=== PATIENT | male | born 1995 | race American Indian/Alaskan Native ===

== ENCOUNTER 2019-02-03 20:15 | Emergency (ER) | payer SELFPAY ==
[2019-02-03 20:20] VITALS: BP 153/78
--- NOTE | 2019-02-03 20:34 | Emergency Department Report ---
Blank Doc - Documentation Documentation: This is a 23-year-old male that presents with left great toe pain and swelling. Stated believes hit it. This initial assessment/diagnostic orders/clinical plan/treatment(s) is/are subject to change based on patient's health status, clinical progression and re- assessment by fellow clinical providers in the ED. Further treatment and workup at subsequent clinical providers discretion. Patient/guardians urged not to elope from the ED as their condition may be serious if not clinically assessed and managed. Initial orders include: 1- Patient sent to [facility] for further evaluation and treatment 2- xray
[2019-02-03] MEDS ORDERED: HYDROGEN PEROXIDE ONE (21:32)
--- NOTE | 2019-02-03 21:41 | XRay Report ---
LEFT FOOT 3 VIEWS INDICATION / CLINICAL INFORMATION: pain. COMPARISON: None available. FINDINGS: No significant abnormality. Signer Name: Ramiro Michelle MD Signed: 02/03/2019 9:37 PM Workstation Name: [id number]
[2019-02-03] MEDS ORDERED: PERCOCET 5/325 PO STA (22:20)
--- NOTE | 2019-02-03 22:25 | Emergency Department Report ---
ED General Adult HPI - General Chief complaint: Extremity Injury, Lower Stated complaint: RT TOE INJURY Time Seen by Provider: 02/03/19 20:34 Source: patient Mode of arrival: Ambulatory Limitations: No Limitations - History of Present Illness Initial comments: 23-year-old morbidly obese -[place] male complaining of pain to his left great toe which started from an unknown etiology. States that he may have bumped his toe, but does not show reports progressively worsening dull throbbing pain and some and some swelling as well. Location: lower extremity Radiation: non-radiation Quality: dull Consistency: constant Improves with: none Worsens with: none - Related Data Previous Rx's Medication Instructions Recorded Last Taken Type Amoxicillin/Potassium Clav 1 each PO BID #20 tablet 02/03/19 Unknown Rx [Augmentin 875-125 Tablet] Chlorhexidine Gluconate [Hibiclens] 10 ml TP BID #240 liquid 02/03/19 Unknown Rx Allergies Allergy/AdvReac Type Severity Reaction Status Date / Time No Known Allergies Allergy Verified 02/03/19 20:18 ED Review of Systems ROS: Stated complaint: RT TOE INJURY Other details as noted in HPI Comment: All other systems reviewed and negative ED Past Medical Hx - Past Medical History Previous Medical History?: No - Surgical History Past Surgical History?: No - Social History Smoking Status: Never Smoker - Medications Home Medications: Home Medications Medication Instructions Recorded Confirmed Last Taken Type Amoxicillin/Potassium Clav 1 each PO BID #20 tablet 02/03/19 Unknown Rx [Augmentin 875-125 Tablet] Chlorhexidine Gluconate [Hibiclens] 10 ml TP BID #240 liquid 02/03/19 Unknown Rx ED Physical Exam - General Limitations: No Limitations General appearance: alert, in no apparent distress - Head Head exam: Present: atraumatic, normocephalic - Eye Eye exam: Present: normal appearance - ENT ENT exam: Present: mucous membranes moist - Neck Neck exam: Present: normal inspection - Respiratory Respiratory exam: Present: normal lung sounds bilaterally. Absent: respiratory distress - Cardiovascular Cardiovascular Exam: Present: regular rate, normal rhythm. Absent: systolic murmur, diastolic murmur, rubs, gallop - GI/Abdominal GI/Abdominal exam: Present: soft, normal bowel sounds - Rectal Rectal exam: Present: deferred - Extremities Exam Extremities exam: Present: normal inspection - Expanded Lower Extremity Exam Left Foot/Toe exam: Present: tenderness, swelling (: Tender left hallux with a paronychia present. No lymphangitis noted.), erythema - Back Exam Back exam: Present: normal inspection - Neurological Exam Neurological exam: Present: alert, oriented X3 - Psychiatric Psychiatric exam: Present: normal affect, normal mood - Skin Skin exam: Present: warm, dry, intact, normal color. Absent: rash ED Course Vital Signs 02/03/19 20:19 Temperature 98.0 F Pulse Rate 89 Respiratory 18 Rate Blood Pressure 153/78 O2 Sat by Pulse 96 Oximetry - Procedure Description Procedures done: 23-year-old male or paronychia to the left hallux. The wound was prepped and draped in aseptic fashion. #11 blade was used to incise the paronychia copious amounts of pus was evacuated. Wound was then was irrigated with saline and peroxide mix and then dressed with antimicrobials dressing. She will centimeter well is negative. Blood loss less than 2 mL ED Medical Decision Making - Medical Decision Making Paronychia to the left hallux treated with incision and drainage complications. Procedure was said with simple Critical care attestation.: If time is entered above; I have spent that time in minutes in the direct care of this critically ill patient, excluding procedure time. ED Disposition Clinical Impression: Paronychia Disposition: DC-01 TO HOME OR SELFCARE Is pt being admited?: No Does the pt Need Aspirin: No Condition: Stable Instructions: Paronychia (ED) Prescriptions: Colchicine 0.6 mg PO Q1HR #10 capsule predniSONE [Deltasone] 50 mg PO QDAY #5 tab traMADol [Ultram] 50 mg PO Q6HR PRN #10 tablet PRN Reason: Pain Referrals: GEORGE BARRIENTOS MD [Primary Care Provider] - 3-5 Days
[2019-02-03] MEDS ORDERED: AUGMENTIN 875 MG PO ONE (22:26)
== END 2019-02-03 22:36 | disposition home or self-care (01) ==
LOC: ED 20:15
DX: L03.032 Cellulitis of left toe (principal)

== ENCOUNTER 2019-02-26 01:03 | Emergency (ER) | payer SELFPAY ==
[2019-02-26 02:13] LABS: BUN/Creatinine Ratio 12; Blood Urea Nitrogen 13 mg/dL (9-20); Calcium 9.3 mg/dL (8.4-10.2); Hemolysis Index 4
[2019-02-26] MEDS ORDERED: XYLOCAINE 2%/ EPI 1:200,000 INFILTRATI ONE (02:51)
[2019-02-26] MEDS ORDERED: ATIVAN IM PRN (02:51)
[2019-02-26] MEDS ORDERED: TYLENOL PO PRN (02:51)
[2019-02-26] MEDS ORDERED: HALDOL IM PRN (02:51)
[2019-02-26] MEDS ORDERED: BOOSTRIX IM ONE (02:51)
[2019-02-26] MEDS ORDERED: NACL 0.9% IR ONE (02:51)
--- NOTE | 2019-02-26 02:53 | Emergency Department Report ---
<ALMA PASTRANA - Last Filed: 02/26/19 04:05> ED General Adult HPI - General Chief complaint: Psych Stated complaint: SUICIDAL ATTEMPT Time Seen by Provider: 02/26/19 02:20 - Related Data Previous Rx's Medication Instructions Recorded Last Taken Type Amoxicillin/Potassium Clav 1 each PO BID #20 tablet 02/03/19 Unknown Rx [Augmentin 875-125 Tablet] Chlorhexidine Gluconate [Hibiclens] 10 ml TP BID #240 liquid 02/03/19 Unknown Rx Allergies Allergy/AdvReac Type Severity Reaction Status Date / Time No Known Allergies Allergy Verified 02/03/19 20:18 ED Past Medical Hx - Medications Home Medications: Home Medications Medication Instructions Recorded Confirmed Last Taken Type Amoxicillin/Potassium Clav 1 each PO BID #20 tablet 02/03/19 02/26/19 Unknown Rx [Augmentin 875-125 Tablet] Chlorhexidine Gluconate [Hibiclens] 10 ml TP BID #240 liquid 02/03/19 02/26/19 Unknown Rx - Laceration /Wound Repair Left Anterior Arm Wound Location: upper extremity Wound Length (cm): 4 (x 3 ) Wound's Depth, Shape: superficial Wound Explored: clean Irrigated w/ Saline (ccs): 250 Betadine Prep?: Yes Anesthesia: 1% Lidocaine Volume Anesthetic (ccs): 6 Wound Debrided: none - no foreignbody noted Wound Repaired With: sutures Suture Size/Type: 4:0, proline Number of Sutures: 37 Layer Closure?: No Sterile Dressing Applied?: Yes Progress: Left forearm with 4, 4 cm lacerations superficial no nerve tendon or muscle damage range of motion is intact flexion and extension to direct confrontation intact distal pulses intact no bleeding wounds clean with Betadine solution and anesthesia with 1% lidocaine 6 mL total was irrigated with 250 mL of sterile saline wounds manually probe explored no foreign bodies wounds closed with 4. 0 Prolene 37 sutures all bleeding is controlled range of motion remains intact CMTS intact distal pulses remain intact sterile dressing applied, Extremity x-rays noted no fracture patient and mother given wound care instructions . Patient for tetanus antibiotics will follow with PCP in 2-3 days for wound check and 7-10 days for suture removal always controlled patient tolerated procedure with minimal distress. ED Medical Decision Making - Lab Data Result diagrams: 02/26/19 01:23 02/26/19 01:23 ED Disposition Clinical Impression: Medical clearance for psychiatric admission, Laceration of left forearm Disposition: DC/TX-65 PSY HOSP/PSY UNIT Condition: Good Referrals: GEORGE BARRIENTOS MD [Primary Care Provider] - 3-5 Days <YANIRA LORENZ - Last Filed: 02/27/19 02:08> ED General Adult HPI - General Source: patient, RN notes reviewed, old records reviewed Mode of arrival: Ambulatory Limitations: No Limitations - History of Present Illness Initial comments: This is a 23-year-old gentleman. The patient is not known to this provider previously. The patient presents to the ER with a complaint of self-inflicted wound to the left volar aspect of the distal forearm. He is right-hand dominant. He can't recall his last tetanus vaccination. Apparently he was angry and was contemplated suicide. He is now remorseful and regretful of this decision. He has aching throbbing pain to his left forearm. He makes no complaint of tingling or numbness or weakness. He denies other injuries. He denies other complaints. He specifically denies hallucinations, access to guns or firearms, intention to overdose, and wanted to harm other people. He denies abdominal pain, and dysuria. The patient regrets his actions. -: Sudden Location: upper extremity Radiation: non-radiation Quality: stabbing Consistency: intermittent Improves with: rest Worsens with: movement ED Review of Systems ROS: Stated complaint: SUICIDAL ATTEMPT Other details as noted in HPI Constitutional: denies: fever Eyes: denies: eye discharge ENT: denies: epistaxis Respiratory: denies: cough Cardiovascular: denies: chest pain Genitourinary: denies: dysuria Musculoskeletal: arthralgia, myalgia Skin: lesions Psychiatric: anxiety. denies: auditory hallucinations, visual hallucinations, homicidal thoughts ED Past Medical Hx - Past Medical History Previous Medical History?: No - Surgical History Past Surgical History?: No - Social History Smoking Status: Never Smoker Substance Use Type: None ED Physical Exam - General Limitations: No Limitations General appearance: alert, anxious, obese - Head Head exam: Present: atraumatic, normocephalic - Eye Eye exam: Present: normal appearance, EOMI. Absent: nystagmus - ENT ENT exam: Present: normal exam, normal orophraynx, mucous membranes moist, normal external ear exam - Neck Neck exam: Present: normal inspection, full ROM. Absent: tenderness, meningismus - Respiratory Respiratory exam: Present: normal lung sounds bilaterally. Absent: respiratory distress - Cardiovascular Cardiovascular Exam: Present: regular rate, normal rhythm, normal heart sounds. Absent: bradycardia, tachycardia, irregular rhythm, systolic murmur, diastolic murmur, rubs, gallop - GI/Abdominal GI/Abdominal exam: Present: soft. Absent: distended, tenderness, guarding, rebound, rigid, pulsatile mass - Rectal Rectal exam: Present: deferred - Extremities Exam Extremities exam: Present: full ROM, other (2+ pulses noted in the bilateral upper, lower extremities. Compartments soft. No long bony tenderness. The pelvis is stable.). Absent: normal inspection (the right upper extremity is within normal limits. The left distal volar upper extremity has multiple long linear lacerations. No foreign bodies are noted. Sensation is intact to light touch in the left deltoid, median, radial, ulnar distribution. There is no pulsatile bleeding. There is no expansile hematoma. Finger intrinsics in the left upper extremity, including thumb opposition and circumduction are intact. Full range of motion in the left wrist. Full range of motion in the left elbow.), pedal edema, joint swelling, calf tenderness - Back Exam Back exam: Present: normal inspection, full ROM. Absent: tenderness, CVA tenderness (R), CVA tenderness (L), paraspinal tenderness, vertebral tenderness - Neurological Exam Neurological exam: Present: alert, oriented X3, normal gait, other (Extraocular movements intact. Tongue midline. No facial droop. Facial sensation intact to light touch in the V1, V2, V3 distribution bilaterally. 5 and 5 strength in 4 extremities.. Sensation is intact to light touch in 4 extremities.). Absent: motor sensory deficit - Psychiatric Psychiatric exam: Present: anxious - Skin Skin exam: Present: warm, dry, intact, normal color. Absent: rash ED Course Vital Signs 02/26/19 02/26/19 02/26/19 01:21 02:10 02:16 Temperature 97.9 F 97.6 F Pulse Rate 81 82 78 Respiratory 16 12 16 Rate Blood Pressure 138/96 130/81 Blood Pressure 130/81 [Right] O2 Sat by Pulse 96 96 96 Oximetry 02/26/19 02/26/19 02/26/19 02:30 08:04 14:03 Temperature 98.6 F 99.0 F Pulse Rate 76 92 H 81 Respiratory 18 18 18 Rate Blood Pressure Blood Pressure 147/78 150/81 [Right] O2 Sat by Pulse 97 96 97 Oximetry 02/26/19 20:17 Temperature 98.2 F Pulse Rate 83 Respiratory 16 Rate Blood Pressure Blood Pressure 107/77 [Right] O2 Sat by Pulse Oximetry ED Medical Decision Making - Lab Data Result diagrams: 02/26/19 01:23 02/26/19 01:23 Vital Signs 02/26/19 02/26/19 02/26/19 01:21 02:10 02:16 Temperature 97.9 F 97.6 F Pulse Rate 81 82 78 Respiratory 16 12 16 Rate Blood Pressure 138/96 130/81 Blood Pressure 130/81 [Right] O2 Sat by Pulse 96 96 96 Oximetry 02/26/19 02:30 Temperature Pulse Rate 76 Respiratory 18 Rate Blood Pressure Blood Pressure [Right] O2 Sat by Pulse 97 Oximetry Lab Results 02/26/19 02/26/19 02/26/19 Range/Units 01:23 01:23 01:23 WBC (4.5-11.0) K/mm3 RBC (3.65-5.03) M/mm3 Hgb (11.8-15.2) gm/dl Hct (35.5-45.6) % MCV (84-94) fl MCH (28-32) pg MCHC (32-34) % RDW (13.2-15.2) % Plt Count (140-440) K/mm3 Lymph % (Auto) (13.4-35.0) % Slope % (Auto) (0.0-7.3) % Eos % (Auto) (0.0-4.3) % Baso % (Auto) (0.0-1.8) % Lymph # (1.2-5.4) K/mm3 Slope # (0.0-0.8) K/mm3 Eos # (0.0-0.4) K/mm3 Baso # (0.0-0.1) K/mm3 Seg Neutrophils % (40.0-70.0) % Seg Neutrophils # (1.8-7.7) K/mm3 Sodium 140 (137-145) mmol/L Potassium 3.7 (3.6-5.0) mmol/L Chloride 104.0 (98-107) mmol/L Carbon Dioxide 27 (22-30) mmol/L Anion Gap 13 mmol/L BUN 13 (9-20) mg/dL Creatinine 1.1 (0.8-1.5) mg/dL Estimated GFR > 60 ml/min BUN/Creatinine Ratio 12 % Glucose 105 H (75-100) mg/dL Calcium 9.3 (8.4-10.2) mg/dL Magnesium (1.7-2.3) mg/dL Total Creatine Kinase (55-170) units/L Urine Color (Yellow) Urine Turbidity (Clear) Urine pH (5.0-7.0) Ur Specific Newell (1.003-1.030) Urine Protein (Negative) mg/dL Urine Glucose (UA) (Negative) mg/dL Urine Ketones (Negative) mg/dL Urine Blood (Negative) Urine Nitrite (Negative) Urine Bilirubin (Negative) Urine Urobilinogen (<2.0) mg/dL Ur Leukocyte Esterase (Negative) Urine WBC (Auto) (0.0-6.0) /HPF Urine RBC (Auto) (0.0-6.0) /HPF U Epithel Cells (Auto) (0-13.0) /HPF Urine Mucus /HPF Salicylates < 0.3 L (2.8-20.0) mg/dL Urine Opiates Screen Urine Methadone Screen Acetaminophen < 5.0 L (10.0-30.0) ug/mL Ur Barbiturates Screen Ur Phencyclidine Scrn Ur Amphetamines Screen U Benzodiazepines Scrn Urine Cocaine Screen U Marijuana (THC) Screen Drugs of Abuse Note Plasma/Serum Alcohol (0-0.07) % 02/26/19 02/26/19 02/26/19 Range/Units 01:23 01:23 01:23 WBC 6.7 (4.5-11.0) K/mm3 RBC 5.62 H (3.65-5.03) M/mm3 Hgb 14.9 (11.8-15.2) gm/dl Hct 44.9 (35.5-45.6) % MCV 80 L (84-94) fl MCH 27 L (28-32) pg MCHC 33 (32-34) % RDW 13.5 (13.2-15.2) % Plt Count 181 (140-440) K/mm3 Lymph % (Auto) 37.5 H (13.4-35.0) % Slope % (Auto) 9.9 H (0.0-7.3) % Eos % (Auto) 2.3 (0.0-4.3) % Baso % (Auto) 0.4 (0.0-1.8) % Lymph # 2.5 (1.2-5.4) K/mm3 Slope # 0.7 (0.0-0.8) K/mm3 Eos # 0.2 (0.0-0.4) K/mm3 Baso # 0.0 (0.0-0.1) K/mm3 Seg Neutrophils % 49.9 (40.0-70.0) % Seg Neutrophils # 3.3 (1.8-7.7) K/mm3 Sodium (137-145) mmol/L Potassium (3.6-5.0) mmol/L Chloride (98-107) mmol/L Carbon Dioxide (22-30) mmol/L Anion Gap mmol/L BUN (9-20) mg/dL Creatinine (0.8-1.5) mg/dL Estimated GFR ml/min BUN/Creatinine Ratio % Glucose (75-100) mg/dL Calcium (8.4-10.2) mg/dL Magnesium 2.10 (1.7-2.3) mg/dL Total Creatine Kinase 1052 H (55-170) units/L Urine Color (Yellow) Urine Turbidity (Clear) Urine pH (5.0-7.0) Ur Specific Newell (1.003-1.030) Urine Protein (Negative) mg/dL Urine Glucose (UA) (Negative) mg/dL Urine Ketones (Negative) mg/dL Urine Blood (Negative) Urine Nitrite (Negative) Urine Bilirubin (Negative) Urine Urobilinogen (<2.0) mg/dL Ur Leukocyte Esterase (Negative) Urine WBC (Auto) (0.0-6.0) /HPF Urine RBC (Auto) (0.0-6.0) /HPF U Epithel Cells (Auto) (0-13.0) /HPF Urine Mucus /HPF Salicylates (2.8-20.0) mg/dL Urine Opiates Screen Urine Methadone Screen Acetaminophen (10.0-30.0) ug/mL Ur Barbiturates Screen Ur Phencyclidine Scrn Ur Amphetamines Screen U Benzodiazepines Scrn Urine Cocaine Screen U Marijuana (THC) Screen Drugs of Abuse Note Plasma/Serum Alcohol < 0.01 (0-0.07) % 02/26/19 02/26/19 Range/Units 04:06 04:06 WBC (4.5-11.0) K/mm3 RBC (3.65-5.03) M/mm3 Hgb (11.8-15.2) gm/dl Hct (35.5-45.6) % MCV (84-94) fl MCH (28-32) pg MCHC (32-34) % RDW (13.2-15.2) % Plt Count (140-440) K/mm3 Lymph % (Auto) (13.4-35.0) % Slope % (Auto) (0.0-7.3) % Eos % (Auto) (0.0-4.3) % Baso % (Auto) (0.0-1.8) % Lymph # (1.2-5.4) K/mm3 Slope # (0.0-0.8) K/mm3 Eos # (0.0-0.4) K/mm3 Baso # (0.0-0.1) K/mm3 Seg Neutrophils % (40.0-70.0) % Seg Neutrophils # (1.8-7.7) K/mm3 Sodium (137-145) mmol/L Potassium (3.6-5.0) mmol/L Chloride (98-107) mmol/L Carbon Dioxide (22-30) mmol/L Anion Gap mmol/L BUN (9-20) mg/dL Creatinine (0.8-1.5) mg/dL Estimated GFR ml/min BUN/Creatinine Ratio % Glucose (75-100) mg/dL Calcium (8.4-10.2) mg/dL Magnesium (1.7-2.3) mg/dL Total Creatine Kinase (55-170) units/L Urine Color Yellow (Yellow) Urine Turbidity Slightly-cloudy (Clear) Urine pH 7.0 (5.0-7.0) Ur Specific Newell 1.021 (1.003-1.030) Urine Protein <15 mg/dl (Negative) mg/dL Urine Glucose (UA) Neg (Negative) mg/dL Urine Ketones Neg (Negative) mg/dL Urine Blood Neg (Negative) Urine Nitrite Neg (Negative) Urine Bilirubin Neg (Negative) Urine Urobilinogen 2.0 (<2.0) mg/dL Ur Leukocyte Esterase Lg (Negative) Urine WBC (Auto) 92.0 H (0.0-6.0) /HPF Urine RBC (Auto) 17.0 (0.0-6.0) /HPF U Epithel Cells (Auto) 1.0 (0-13.0) /HPF Urine Mucus 2+ /HPF Salicylates (2.8-20.0) mg/dL Urine Opiates Screen Presumptive negative Urine Methadone Screen Presumptive negative Acetaminophen (10.0-30.0) ug/mL Ur Barbiturates Screen Presumptive negative Ur Phencyclidine Scrn Presumptive negative Ur Amphetamines Screen Presumptive negative U Benzodiazepines Scrn Presumptive negative Urine Cocaine Screen Presumptive negative U Marijuana (THC) Screen Presumptive negative Drugs of Abuse Note Disclamer Plasma/Serum Alcohol (0-0.07) % - Radiology Data Radiology results: report reviewed, image reviewed X-ray of the left forearm shows no fracture, dislocation, or foreign bodies. Soft tissue violations noted - Medical Decision Making Differential diagnosis, including not limited to: Superficial lacerations, mood disorder, suicidality, medical clearance for psychiatric placement Assessment and plan: 23-year-old gentleman with self-inflicted left upper extremity wound, no physical exam evidence of neurovascular deficits, no exam evidence to suggest tendon dysfunction, laceration is repaired by nurse practitioner, please reference their note. Screening laboratory studies reviewed and appreciated, do not demonstrate any emergent condition at this time. CK of 1000 reviewed and appreciated, muscular compartments soft, patient has normal renal function and is young, this does not meet the definition criteria for rhabdomyolysis, it does not require IV fluids, it will decrease on its own with oral hydration. The patient did not endorse any urinary symptoms. His urinalysis shows no bacteriuria. White blood cell count in the urine is reviewed and appreciated, sterile pyuria is a nonspecific finding, and can be followed up by an outpatient primary care doctor. It does not require emergent administration of antibiotic therapy. If the patient at some point in time endorses urinary symptoms, we will reassess. The patient does not endorse any abdominal pain. He is afebrile with reassuring vital signs. His abdominal exam is soft and benign, with no rebound, guarding or peritoneal signs. Clinically do not have suspicion for acute intra-abdominal process. The patient is placed on a 1013. A psychiatric consultation has been requested. At this point in time, the patient does not appear to have an immediate medical contraindication to psychiatric admission, evaluation, consultation and placement. Explained to patient and fianc significance of 1013. Critical care attestation.: If time is entered above; I have spent that time in minutes in the direct care of this critically ill patient, excluding procedure time. ED Disposition Is pt being admited?: No Does the pt Need Aspirin: No
[2019-02-26] MEDS ORDERED: NACL 0.9% 500 ML IR ONE (03:00)
[2019-02-26 03:21] LABS: Hematocrit 44.9 % (35.5-45.6); Hemoglobin 14.9 gm/dl (11.8-15.2); Mean Corpuscular HGB Conc 33 % (32-34); Mean Corpuscular Volume 80 fl (84-94); Mean Platelet Volume 8.3 fl (6-12); Platelet Count 181 K/mm3 (140-440); Red Blood Count 5.62 M/mm3 (3.65-5.03); Red Cell Distribution Width 13.5 % (13.2-15.2)
[2019-02-26 03:22] LABS: Basophils % (Auto) 0.4 % (0.0-1.8); Eosinophils # (Auto) 0.2 K/mm3 (0.0-0.4); Eosinophils % (Auto) 2.3 % (0.0-4.3); Lymphocytes # (Auto) 2.5 K/mm3 (1.2-5.4); Lymphocytes % (Auto) 37.5 % (13.4-35.0); Monocytes # (Auto) 0.7 K/mm3 (0.0-0.8); Monocytes % (Auto) 9.9 % (0.0-7.3)
--- NOTE | 2019-02-26 03:36 | XRay Report ---
Left forearm, 2 views INDICATION: Pain following injury, laceration FINDINGS: There is soft tissue laceration involving the mid aspect of the left forearm but the underl rosangela radius and ulna are intact. No foreign body is seen. Signer Name: Dylon Wilson MD Signed: 02/26/2019 3:32 AM Workstation Name: [id number]
[2019-02-26 04:40] LABS: Bilirubin,Urine NEG (Negative); Blood,Urine NEG (Negative); Color,Urine Yellow (Yellow); Mucus,Urine 2+ /HPF; Protein,Urine <15 mg/dL mg/dL (Negative)
[2019-02-26 04:45] LABS: Amphetamine Screen,Urine PRESUMPTIVE NEGATIVE; Benzodiazepines Screen,Urine PRESUMPTIVE NEGATIVE; Cannabinoid Screen,Urine PRESUMPTIVE NEGATIVE; Cocaine Screen,Urine PRESUMPTIVE NEGATIVE; Methadone Screen,Urine PRESUMPTIVE NEGATIVE; Opiate Screen,Urine PRESUMPTIVE NEGATIVE
--- NOTE | 2019-02-26 13:46 | Consultation ---
History of Present Illness - Reason for Consult Consult date: 02/26/19 Reason for consult: Initial Psychiatric Evaluation - Chief Complaint Chief complaint: " I'm here for these cuts" - History of Present Psychiatric Illness Patient is a 23 year old male who presents to the hospital after a suicide attempt. Today the patient is calm and cooperative during the assessment. Patient denies any past psychiatric history. Patient reports that his mother's birthday is on February 25 and she has been for 4 years. He states, " I got off work from working a 17 hour shift. Lately, I've been thinking about my mother and cutting myself. I've been stressed." He states, " I wanted to cut myself but not kill myself. I didn't know the knife would cut so deep." Patient denies anhedonia, decrease sleep, decrease appetite, mood fluctuations, and decrease energy. He denies lack of motivation. He denies SI/HI's, A/VH's, and delusions. Current Psychiatric Medications: Patient denies. Past Psychiatric History: No previous psychiatric diagnosis; no previous inpatient psychiatric hospitalizations; no outpatient psychiatrist; no previous suicide attempts. Past Medication Trials: Patient denies. History of drug/alcohol abuse: Patient denies. History of abuse/trauma abuse: Patient denies. Social History: High School Diploma; Employed at [employer]; lives with girlfriend; no pending legal issues. Family History of Psychiatric Illness and Substance Abuse: Patient denies. Medications and Allergies Allergies Allergy/AdvReac Type Severity Reaction Status Date / Time No Known Allergies Allergy Verified 02/03/19 20:18 Home Medications Medication Instructions Recorded Confirmed Last Taken Type Amoxicillin/Potassium Clav 1 each PO BID #20 tablet 02/03/19 Unknown Rx [Augmentin 875-125 Tablet] Chlorhexidine Gluconate [Hibiclens] 10 ml TP BID #240 liquid 02/03/19 Unknown Rx Active Meds: Active Medications Acetaminophen (Tylenol) 650 mg PO Q6HR PRN PRN Reason: Pain Haloperidol Lactate (Haldol) 5 mg IM Q6HR PRN PRN Reason: Agitation Lorazepam (Ativan) 2 mg IM Q4HR PRN PRN Reason: Agitation Mental Status Exam - Vital signs Last Vital Signs Temp 98.6 F 02/26/19 08:04 Pulse 92 H 02/26/19 08:04 Resp 18 02/26/19 08:04 BP 147/78 02/26/19 08:04 Pulse Ox 96 02/26/19 08:04 - Exam Narrative exam: Mental Status Exam Appearance: calm Behavior: intermittent eye contact Speech: regular rate and tone Mood: "I feel alright"; depressed Affect: constricted Thought Process: circumstantial Thought Content: denies SI/HI's and AVH's, and delusions Motor Activity: ambulatory Cognition: A/O x 3 Insight: variable Judgment: variable Results Result Diagrams: 02/26/19 01:23 02/26/19 01:23 Abnormal lab results 02/26/19 02/26/19 02/26/19 Range/Units 01:23 01:23 01:23 RBC (3.65-5.03) M/mm3 MCV (84-94) fl MCH (28-32) pg Lymph % (Auto) (13.4-35.0) % Duc[place]ne % (Auto) (0.0-7.3) % Glucose 105 H (75-100) mg/dL Total Creatine Kinase (55-170) units/L Urine WBC (Auto) (0.0-6.0) /HPF Salicylates < 0.3 L (2.8-20.0) mg/dL Acetaminophen < 5.0 L (10.0-30.0) ug/mL 02/26/19 02/26/19 02/26/19 Range/Units 01:23 01:23 04:06 RBC 5.62 H (3.65-5.03) M/mm3 MCV 80 L (84-94) fl MCH 27 L (28-32) pg Lymph % (Auto) 37.5 H (13.4-35.0) % Duc[place]ne % (Auto) 9.9 H (0.0-7.3) % Glucose (75-100) mg/dL Total Creatine Kinase 1052 H (55-170) units/L Urine WBC (Auto) 92.0 H (0.0-6.0) /HPF Salicylates (2.8-20.0) mg/dL Acetaminophen (10.0-30.0) ug/mL All other labs normal. Assessment and Plan Assessment and plan: Impression: MDD, single episode, without psychosis. Complicated grief. PTSD. Today the patient is calm and cooperative during the assessment. He denies SI/HI's, A/VH's, and delusions. Recommendation/Plan: 1. Continue 1013. 2. At this time patient prefers talk therapy. He refuses medication at this time. 3. Discussed the 5 stages of grief. Disposition: Will attempt to gain collateral to determine proper disposition. Will staff with Dr. Marsha Craft.
--- NOTE | 2019-02-27 13:03 | Progress Note ---
Subjective - Reason for Consult Consult date: 02/27/19 Reason for consult: Psychiatry Follow-up - Chief Complaint Chief complaint: "I've never done this before" 23 year old male who presents to the hospital after intentional cutting himself. Today the patient was calm and cooperative during the assessment. He is adamant that he wasn't suicidal when he cut his left inner FA. He stated, "I was feeling sad." He denies any previous self harm behavior in the past. He stated that he do not need any medication because he can handle this situation. He denies SI/HI's, Mental Status Exam - Vital signs Last Vital Signs Temp 98.1 F 02/27/19 07:00 Pulse 67 02/27/19 07:00 Resp 18 02/27/19 07:00 BP 137/91 02/27/19 07:00 Pulse Ox 94 02/27/19 07:00 - Exam Narrative exam: MSE: Appearance: calm, cooperative Behavior: regular eye contact Speech: regular rate and tone Mood: "okay" Affect: congruent to mood Thought Process: circumstantial Thought Content: denies SI/HI's and AVH's Motor Activity: sitting up in bed Cognition: A/O x3 Insight: variable to fair Judgment: poor Assessment and Plan Impression: MDD, single episode. Complicated Grieving. Today the patient was calm and cooperative during the assessment. DDx: R/O Personality DO Recommendation/Plan: Continue 1013. Risks/Benefits discussed with the patient reference antidepressants, he prefer talk therapy at the time. Dispo: The patient was referred to inpatient psy services. Staffed with Dr. Marsha Craft.
[2019-02-28] MEDS: MACROBID PO SCH ×2 (12:00→22:13)
--- NOTE | 2019-02-28 15:22 | Progress Note ---
Subjective - Reason for Consult Consult date: 02/28/19 Reason for consult: Psychiatry Follow-up - Chief Complaint Chief complaint: "I will not hurt myself again" 23 year old male who presents to the hospital after intentional cutting himself. Today the patient was calm and cooperative during the assessment. He stated that he will not hurt himself again. He stated that it's a better way to handle "stress and crisis." He stated that he have been in communication with his girlfriend who's his support system since being in the ER. He denies SI/HI's and AVH's. Mental Status Exam - Vital signs Last Vital Signs Temp 98.3 F 02/28/19 13:35 Pulse 72 02/28/19 13:35 Resp 18 02/28/19 13:35 BP 128/76 02/28/19 13:35 Pulse Ox 100 02/28/19 13:35 - Exam Narrative exam: MSE: Appearance: calm, cooperative Behavior: regular eye contact Speech: regular rate and tone Mood: "okay" Affect: congruent to mood Thought Process: circumstantial Thought Content: denies SI/HI's and AVH's Motor Activity: sitting up in bed Cognition: A/O x3 Insight: variable to fair Judgment:variable to fair Assessment and Plan Impression: MDD, single episode. Complicated Grieving. Today the patient was calm and cooperative during the assessment. DDx: R/O Personality DO Recommendation/Plan: Continue 1013. Risks/Benefits discussed with the patient reference antidepressants, he prefer talk therapy at the time. Dispo: The patient was referred to inpatient psy services. Will staff with Dr. Marsha Craft.
[2019-02-28 20:21] LABS: Alanine Aminotransferase 33 units/L (7-56); Albumin 3.9 g/dL (3.9-5); BUN/Creatinine Ratio 13; Blood Urea Nitrogen 14 mg/dL (9-20); Calcium 8.8 mg/dL (8.4-10.2); Hemolysis Index 23
--- NOTE | 2019-03-01 08:51 | Progress Note ---
Subjective - Reason for Consult Consult date: 03/01/19 Reason for consult: Psychiatry Follow-up - Chief Complaint Chief complaint: "I will make better decisions" 23 year old male who presents to the hospital after intentional cutting himself. Today the patient was calm and cooperative during the assessment. Per collateral information from Lucille Dasilva at [phone] the patient's fiancee, she stated that the patient does not have a hx of self harming behavior nor has he tried to kill himself in the past. She stated that they reside together. She stated that she plan to join the patient in therapy sessions. The patient would like an referral to a therapist in his local area. The patient have been pleasant since his arrival to the ER. He denies SI/HI's and AVH's. Mental Status Exam - Vital signs Last Vital Signs Temp 97.7 F 03/01/19 03:00 Pulse 74 03/01/19 03:00 Resp 18 03/01/19 03:00 BP 131/78 03/01/19 03:00 Pulse Ox 98 03/01/19 03:00 - Exam Narrative exam: MSE: Appearance: calm, cooperative Behavior: regular eye contact Speech: regular rate and tone Mood: "okay" Affect: congruent to mood Thought Process: linear Thought Content: denies SI/HI's and AVH's Motor Activity: sitting up in bed Cognition: A/O x3 Insight: appropriate Judgment: appropriate Assessment and Plan Impression: MDD, single episode. Complicated Grieving. Today the patient was calm and cooperative during the assessment. The patient is no threat to self. DDx: R/O Personality DO Suicide Risk Assessment I. This screening and assessment is based on information collected from the following sources: II. SUICIDE RISK SCREENING (within last 30 days): A.) Suicidal thoughts/behaviors: Yes SUICIDE RISK ASSESSMENT III. FACTORS THAT INCREASE RISK: A.) Demographic and Substance Use Factors: No B.) Current/Recent Factors (within past 3 months): Psychosocial/Environmental Factors: Complicated Grieving Physical Illness: None Cognitive/Psychological Factors: None C.) Historical Factors: None D.) Diagnostic/Symptom/Treatment Factors: None E.) Acute Risk Factor Severity (DESC; MILD/MOD/SEVERE): Mild Other factors for this individual that increase risk: None IV. FACTORS THAT DECREASE RISK: Resilience/Protective Factors: Patient want to cope better with the of his mother Other factors for this individual that decrease risk: Patient denies a desire to harm self V. Clinician's Formulation of Risk and Determination of level of Care: This is a 23 y.o. AA male who cut himself with a knife on his inner left FA. He stated that he was grieving the of his mother, but denies that he was trying to kill himself. He acknowledged that his actions were unsafe. He stated that he will follow-up with outpatient psy services for therapy session once discharged. Since being hospitalized the patient has consistently denied the desire to harm himself. Additionally, he has become insightful about how to better address her current issue. The patient is not impaired by substance. He is able to take care of his ADLs and is not at imminent risk of harm to self or others. Consequently, it is the opinion of the treatment team that the patient is at low risk of suicide and does not meet criteria to continue an involuntary psychiatric hold. Estimation of Imminent Risk: Low due to the above explanation. Determination of Level of Care based on Suicide Risk: Outpatient follow-up. Narrative description of clinical reasoning. Given the fact that the patient is willing to engage in outpatient psy services (therapy sessions) and has a supportive network (Ms Lucille aguilera), it is reasonable to expect that the patient will seek services. At this current time, he is not impulsive and does not have any risk factors to increase the likelihood of his impulsive behavior. Therefore, it is reasonable to expect that the patient will engage in outpatient psy services which will reduce further unsafe behaviors. . Plan and Interventions based on Suicide Risk: This patient will likely be stepped down to an outpatient mental health center in the community upon discharge and follow-up within 7 days of his discharge from the hospital. VII. Discharge/After Hours Support Plan: Patient can return back to the ER, call 911 or crisis line if symptoms of depression, anxiety, suicidality return. Recommendation/Plan: Rescind 1013. Safety Contract completed with the patient. Discussed generalized coping skills with the patient, he verbalized understanding. Dispo: The patient can follow up with [facility] for outpatient psy servcies. Staffed with Dr. Marsha Craft.
[2019-03-01] MEDS: MACROBID PO SCH (10:00)
[2019-03-01 10:19] VITALS: BP 143/85
== END 2019-03-01 11:40 | disposition home or self-care (01) ==
LOC: ED 01:03 → EEVIPCON 01:03 → ED 03-01 11:40
DX: S51.812A Laceration without foreign body of left forearm, initial encounter (principal); X78.8XXA Intentional self-harm by other sharp object, initial encounter; Y93.89 Activity, other specified; Y92.89 Other specified places as the place of occurrence of the external cause; Y99.8 Other external cause status; F32.9 Major depressive disorder, single episode, unspecified; F43.10 Post-traumatic stress disorder, unspecified
CPT/HCPCS: 12002; 36415; 73090; 80048; 80053; 80307; 81001; 82550; 83735; 85025; 87086; 90471; 90715; 99284; J2060; 80320; G0480

== ENCOUNTER 2019-05-05 15:51 | Emergency (ER) | payer SELFPAY | END 2019-05-05 16:20 | LOC: ED 15:51 | DX: Z48.02 Encounter for removal of sutures (principal); Z53.21 Procedure and treatment not carried out due to patient leaving prior to being seen by health care provider ==